=== PATIENT | female | born 1990 | race Caucasian/White ===

== ENCOUNTER 2017-10-29 20:55 | Inpatient (IN) | payer OTHER ==
[2017-10-29] MEDS: ELECTROLYTE-148 SOLN 1,000 ML IV SCH ×2 (21:15→23:45)
[2017-10-29 21:52] VITALS: BMI 29.7
[2017-10-29] MEDS ORDERED: TUBERCULIN PPD 5 TU/0.1ML SYRINGE (IN PATIENT USE ONLY) ID ONE (22:00)
[2017-10-29] MEDS ORDERED: BUTORPHANOL TARTRATE 1 MG/ML VIAL IVPB ONE (22:17)
[2017-10-29] MEDS ORDERED: PROMETHAZINE HCL 25 MG/1 ML VIAL IVPUSH ONE (22:17)
[2017-10-29 22:26] LABS: BASO # 0.1 # (0.1-1); BASO % 0.6 % (0-2.0); EOS % 0.2 % (0-4.5); LYMPH # 1.4 (8-40); MCHC 33.7 g/dl (32.0-36.0); MEAN CELL VOLUME 92.1 fl (80-96); MEAN PLT VOLUME 10.2 fl (7.5-11.1); MONO # 0.3 # (3.8-10.2); NEUT # 10.2 # (42.8-82.8); NEUT % 84.7 % (42.8-82.8); PLATELET COUNT 191 K/MM3 (134-434); RDW 14.7 % (11.6-15.6); WHITE BLOOD COUNT 12.1 K/mm3 (4.0-10.0)
--- NOTE | 2017-10-29 22:38 | HP ---
Past Medical History - Primary Care Physician PCP:: Dayana Smallwood - Admission Chief Complaint: Spontaneous rupture of membranes. Labor History of Present Illness: 89 yo spont ab x 1 in 1st trimester admitted for spontaneous rupture of membranes who desired natural labor History Source: Patient Limitations to Obtaining History: No Limitations - Past Medical History Pulmonary: Yes: Asthma ...: 3 ...Para: 0 ...Term: 0 ...: 0 ...Spon : 2 ...Induced : 0 ...Multiple Gestation: 0 ...LMP: 01/26/17 ... Weeks Gestation by Dates: 39.3 ...EDC by Dates: 11/02/17 - Past Surgical History Past Surgical History: Yes: Tonsillectomy Hx Myomectomy: No Hx Transabdominal Cerclage: No - Smoking History Smoking history: Never smoked Have you smoked in the past 12 months: No Aproximately how many cigarettes per day: 0 - Alcohol/Substance Use Hx Alcohol Use: No - Social History History of Recent Travel: No Home Medications - Allergies Allergies/Adverse Reactions: Allergies Allergy/AdvReac Type Severity Reaction Status Date / Time cat dander Allergy Verified 10/29/17 21:33 dog dander Allergy Verified 10/29/17 21:32 pollen extracts Allergy Verified 10/29/17 21:33 - Home Medications Home Medications: Ambulatory Orders Vit 108/Iron/Folic AC [ One Tablet] 1 each PO DAILY 10/29/17 Review of Systems - Review of Systems Constitutional: reports: No Symptoms Eyes: reports: No Symptoms HENT: reports: No Symptoms Neck: reports: No Symptoms Cardiovascular: reports: No Symptoms Respiratory: reports: No Symptoms Gastrointestinal: reports: Abdominal Pain Genitourinary: reports: No Symptoms Breasts: reports: No Symptoms Reported Musculoskeletal: reports: No Symptoms Integumentary: reports: No Symptoms Neurological: reports: No Symptoms Endocrine: reports: No Symptoms Hematology/Lymphatic: reports: No Symptoms Psychiatric: reports: No Symptoms Physical Exam - Maternity Vital Signs: Vital Signs Temperature 97.7 F 10/29/17 21:42 Pulse Rate 86 10/29/17 21:42 Respiratory Rate 21 10/29/17 21:42 Blood Pressure 121/62 10/29/17 21:42 O2 Sat by Pulse Oximetry (%) Constitutional: Yes: Well Nourished, No Distress Neck: Yes: WNL Breast(s): Yes: WNL - Abdominal Exam/OB Fundal Height: 39 Number of Fetuses: Single Contractions: Yes Regularity: Regular Intensity: Mod/Strong Monitor Mode: External Heart Rate Location: [facility] Category: I Decelerations: None - Vaginal Exam/OB Dilatation (cm): 2 Amniotic Membrane Status: Ruptured Station: -1 Hemorrhage Risk Assessment - Risk Factors Medium Risk Factors: Yes: None High Risk Factors: Yes: None Risk Score: 1 Risk Level: Medium Risk Problem List - Problems (1) Spontaneous rupture of membranes Code(s): [id number] - (2) Spontaneous onset of labor after 37 but before 39 completed weeks gestation with delivery by planned section Code(s): O75.82 - ONSET LABOR 37-39 WEEKS, W DEL BY (PLANNED) SECTION Assessment/Plan iup at 39.3 weeks srom labbor Cat 1 Plan stadol may desire epidural
[2017-10-29 22:59] LABS: ANION GAP 15 (8-16); CALCIUM 8.9 mg/dL (8.5-10.1); CO2 18 mmol/L (21-32); CREATININE 0.6 mg/dL (0.55-1.02); GLUCOSE,RANDOM 163 mg/dL (74-106)
[2017-10-29 23:15] LABS: ACTIVATED PTT 28.2 SECONDS (26.9-34.4)
[2017-10-29 23:39] LABS: INR 1.01 (0.82-1.09); PROTHROMBIN TIME (PATIENT) 11.4 SEC (9.98-11.88)
[2017-10-30] MEDS ORDERED: FENTANYL/BUPIVACAINE/NS/PF - PCEA - 50 ML DISP.SYRIN EP ONE (00:56)
[2017-10-30] MEDS ORDERED: FENTANYL/BUPIVACAINE/NS/PF - PCEA - 50 ML DISP.SYRIN EP SCH (01:50)
--- NOTE | 2017-10-30 02:24 | PN ---
Ante-Partal Exam - Subjective Subjective: pt s/p epidural pt with c/o pressure Vital Signs: Vital Signs Temperature 98.5 F 10/30/17 00:00 Pulse Rate 86 10/30/17 00:00 Respiratory Rate 20 10/30/17 00:00 Blood Pressure 132/84 10/30/17 00:00 O2 Sat by Pulse Oximetry (%) Bleeding: No Headache: No Visual changes: No Right upper quadrant pain: No - Contractions Contractions: Yes Regularity: Regular Intensity: Moderate Monitor Mode: External - Exam during Labor Variability: Moderate Category: I Monitor Decelerations: Early Exam: Vaginal Dilatation (cm): 7 Effacement (%): 80 Amniotic Membrane Status: Ruptured Nitrazine Test: Positive Amniotic Fluid: Clear Presentation: Vertex Station: -1 - Assessment/Plan Assessment/Plan: iup at 39.5 week active labor Cat 1 Plan Continue labor progress
--- NOTE | 2017-10-30 02:32 | PN ---
Ante-Partal Exam - Subjective Subjective: Pt with pressure Vital Signs: Vital Signs Temperature 98.5 F 10/30/17 00:00 Pulse Rate 86 10/30/17 00:00 Respiratory Rate 20 10/30/17 00:00 Blood Pressure 132/84 10/30/17 00:00 O2 Sat by Pulse Oximetry (%) Bleeding: No Headache: No Visual changes: No Right upper quadrant pain: No - Contractions Contractions: Yes Regularity: Regular Intensity: Moderate Monitor Mode: External - Exam during Labor Variability: Moderate Category: I Exam: Vaginal Amniotic Fluid: Clear Presentation: Vertex Station: +1 - Assessment/Plan Assessment/Plan: IUp at 39.5 week Arom Cat 1 SP epidural Plan Continue labor progress Anticipate vaginal delivery
[2017-10-30] MEDS ORDERED: OXYTOCIN 20 UNITS in 0.9% NS 20 UNIT/1,000 ML INFUS.BAG IV ONE (05:18)
[2017-10-30] MEDS ORDERED: LIDOCAINE HCL 1% PRESERVATIVE FREE - 30ML VIAL ONE (05:18)
--- NOTE | 2017-10-30 06:17 | PN ---
Delivery - Delivery Vaginal Delivery: Shoulder/Difficult (Narciso manuver), Spontaneous Type of Anesthesia: Epidural Episiotomy/Laceration: 1st degree EBL (cc): 300 Delivery, Single - Stages of Labor Placenta: Yes: Spontaneous - Condition of Infant Gender: Male Position: OA - Feeding Plan Initial Plan: Elected not to breastfeed exclusively throughout hospitalization
[2017-10-30] MEDS ORDERED: METHYLERGONOVINE MALEATE 0.2 MG/1 ML AMP IM PRN (06:22)
[2017-10-30] MEDS ORDERED: WITCH HAZEL 50% (TUCKS) 40 PAD/JAR PAD TP PRN (06:22)
[2017-10-30] MEDS ORDERED: BENZOCAINE 20% 57 GM BOTTLE TP PRN (06:22)
[2017-10-30] MEDS ORDERED: BENZOCAINE 28 GM HEMORRHOIDAL OINTMENT PR PRN (06:22)
[2017-10-30] MEDS ORDERED: BISACODYL 10 MG SUPP.RECT RC PRN (06:22)
[2017-10-30 06:37] LABS: ARTERIAL BLOOD GAS BASE EXCESS -6.7 meq/l (-2-2); ARTERIAL BLOOD GAS HCO3 20.4 meq/L (22-26)
[2017-10-30 06:43] LABS: VENOUS BLOOD GAS HCO3 20.2 meq/L (19-25); VENOUS PH 7.35 (7.32-7.42)
[2017-10-30 06:46] LABS: ARTERIAL BLOOD GAS PO2 24.7 mmHg (80-100)
[2017-10-30 06:47] LABS: ARTERIAL BLD GAS O2 SATURATION 38.4 % (90-98.9); ARTERIAL BLOOD GAS pH 7.24 (7.35-7.45)
[2017-10-30] MEDS: ACETAMINOPHEN 325 MG TABLET (FP) PO PRN ×2 (08:37→17:39)
[2017-10-30] MEDS: IBUPROFEN 600 MG TABLET (FP) PO PRN ×2 (08:38→17:39)
[2017-10-31] MEDS: IBUPROFEN 600 MG TABLET (FP) PO PRN ×2 (00:10→12:52)
[2017-10-31] MEDS: ACETAMINOPHEN 325 MG TABLET (FP) PO PRN ×2 (00:10→12:53)
[2017-10-31 08:14] LABS: BASO # 0.1 # (0.1-1); BASO % 0.8 % (0-2.0); EOS # 0.2 # (0-4.5); EOS % 1.5 % (0-4.5); LYMPH # 2.9 (8-40); MCH 30.6 pg (25.7-33.7); MCHC 32.6 g/dl (32.0-36.0); MEAN CELL VOLUME 93.8 fl (80-96); MEAN PLT VOLUME 9.4 fl (7.5-11.1); MONO # 0.6 # (3.8-10.2); NEUT # 8.2 # (42.8-82.8); NEUT % 68.5 % (42.8-82.8); PLATELET COUNT 161 K/MM3 (134-434); RDW 15.3 % (11.6-15.6); WHITE BLOOD COUNT 11.9 K/mm3 (4.0-10.0)
--- NOTE | 2017-10-31 08:20 | PN ---
Post Progress Note - Subjective Subjective: 27 yo Para 1 status post vaginal delivery, seen and evaluated. Doing well, no complaints. Post Day: 1 Type of Delivery: Vital Signs: Vital Signs Temperature 97.7 F 10/31/17 04:00 Pulse Rate 88 10/31/17 04:00 Respiratory Rate 18 10/31/17 04:00 Blood Pressure 120/60 10/31/17 04:00 O2 Sat by Pulse Oximetry (%) 100 10/30/17 06:45 Breast Exam: Yes: Soft Uterus: Yes: Fundus Firm Abdomen/GI: Yes: Abdomen soft, Tolerating PO Lochia: Yes: Rubra Lochia, amount: Moderate Extremities: Yes: Calves non-tender Activity: Ambulating - Labs Labs: CBC WBC 12.1 K/mm3 (4.0-10.0) H D 10/29/17 22:00 RBC 3.94 M/mm3 (3.60-5.2) 10/29/17 22:00 Hgb 12.2 GM/dL (10.7-15.3) 10/29/17 22:00 Hct 36.3 % (32.4-45.2) 10/29/17 22:00 MCV 92.1 fl (80-96) 10/29/17 22:00 MCH 31.0 pg (25.7-33.7) 10/29/17 22:00 MCHC 33.7 g/dl (32.0-36.0) 10/29/17 22:00 RDW 14.7 % (11.6-15.6) D 10/29/17 22:00 Plt Count 191 K/MM3 (134-434) 10/29/17 22:00 MPV 10.2 fl (7.5-11.1) D 10/29/17 22:00 Absolute Neuts (auto) 10.2 # (42.8-82.8) L 10/29/17 22:00 Absolute Lymphs (auto) 1.4 (8-40) L 10/29/17 22:00 Absolute Monos (auto) 0.3 # (3.8-10.2) L 10/29/17 22:00 Absolute Eos (auto) 0.0 # (0-4.5) 10/29/17 22:00 Absolute Basos (auto) 0.1 # (0.1-1) 10/29/17 22:00 Neutrophils % 84.7 % (42.8-82.8) H D 10/29/17 22:00 Lymphocytes % 11.7 % (8-40) D 10/29/17 22:00 Monocytes % 2.8 % (3.8-10.2) L 10/29/17 22:00 Eosinophils % 0.2 % (0-4.5) D 10/29/17 22:00 Basophils % 0.6 % (0-2.0) 10/29/17 22:00 Problem List - Problems (1) Status post normal vaginal delivery Code(s): [id number] - Assessment/Plan Status post vaginal delivery Stable Continue care
[2017-11-01] MEDS: ACETAMINOPHEN 325 MG TABLET (FP) PO PRN (00:43)
[2017-11-01] MEDS: IBUPROFEN 600 MG TABLET (FP) PO PRN (00:44)
[2017-11-01 08:44] VITALS: BP 135/83; PULSE 76; TEMP 97.8
== END 2017-11-01 11:55 | disposition home or self-care (01) | DRG 560 ==
LOC: JDEL 20:55 → JLDR 21:25 → J3W 10-30 08:20
PROVIDERS: ADMIT Obstetrics & Gynecology; ATTEND Obstetrics & Gynecology
PROC: 0HQ9XZZ Repair Perineum Skin, External Approach (ICD-10-PCS; principal; 2017-10-30)
PROC: 10E0XZZ Delivery of Products of Conception, External Approach (ICD-10-PCS; 2017-10-30)
DX: O70.0 First degree perineal laceration during delivery (principal); Z3A.39 39 weeks gestation of pregnancy
CPT/HCPCS: 36415; 36600; 59409; 80048; 82803; 85025; 85610; 85730; 86593; 86850; 86900; 86901

== ENCOUNTER 2020-05-28 08:40 | Inpatient (IN) | payer OTHER ==
[2020-05-28 09:59] VITALS: BMI 33.7
[2020-05-28] MEDS ORDERED: PROMETHAZINE HCL 25 MG/1 ML VIAL IVPB ONE (10:29)
[2020-05-28] MEDS ORDERED: BUTORPHANOL TARTRATE 1 MG/ML VIAL IVPB PRN (10:29)
--- NOTE | 2020-05-28 10:29 | HP ---
Past Medical History - Primary Care Physician PCP:: Dayana Smallwood - Admission Chief Complaint: Spontaneous rupture of membranes. Labor History of Present Illness: 30 y ega 39 week with srom in active labor History Source: Patient Limitations to Obtaining History: No Limitations - Past Medical History Pulmonary: Yes: Asthma ...: 5 ...Para: 1 ...Term: 1 ...Spon : 2 ...Induced : 1 ...Living Children: 1 ...EDC by Reagan: 06/01/20 - Past Surgical History Past Surgical History: Yes: Tonsillectomy Hx Myomectomy: No Hx Transabdominal Cerclage: No - Smoking History Smoking history: Never smoked Have you smoked in the past 12 months: No Aproximately how many cigarettes per day: 0 - Alcohol/Substance Use Hx Alcohol Use: No History of Substance Use: reports: None - Social History Usual Living Arrangement: Yes: With Spouse Do you think of yourself as: Straight/Heterosexual History of Recent Travel: No Home Medications - Allergies Allergies/Adverse Reactions: Allergies Allergy/AdvReac Type Severity Reaction Status Date / Time cat dander Allergy Verified 05/28/20 10:21 dog dander Allergy Verified 05/28/20 10:21 pollen extracts Allergy Verified 05/28/20 10:21 - Home Medications Home Medications: Ambulatory Orders Mv-Mn/Iron/FA/Herbal/Digestive [ One Tablet] 1 each PO DAILY 10/29/17 Ibuprofen [Motrin -] 600 mg PO QID PRN #28 tablet 10/30/17 Ibuprofen [Motrin -] 600 mg PO QID #28 tablet 05/28/20 Review of Systems - Review of Systems Constitutional: reports: No Symptoms Eyes: reports: No Symptoms HENT: reports: No Symptoms Neck: reports: No Symptoms Cardiovascular: reports: No Symptoms Respiratory: reports: No Symptoms Gastrointestinal: reports: No Symptoms Genitourinary: reports: No Symptoms Breasts: reports: No Symptoms Reported Musculoskeletal: reports: No Symptoms Integumentary: reports: No Symptoms Neurological: reports: No Symptoms Endocrine: reports: No Symptoms Hematology/Lymphatic: reports: No Symptoms Psychiatric: reports: No Symptoms Physical Exam - Maternity Vital Signs: Vital Signs Temperature 98.3 F 05/28/20 09:48 Pulse Rate 82 05/28/20 09:48 Respiratory Rate 18 05/28/20 09:48 Blood Pressure 123/72 05/28/20 09:48 O2 Sat by Pulse Oximetry (%) Constitutional: Yes: Well Nourished, No Distress Cardiovascular: Yes: WNL Breast(s): Yes: WNL - Abdominal Exam/OB Number of Fetuses: Single Presentation: Vertex Contractions: Yes Monitor Mode: External Category: I - Vaginal Exam/OB Dilatation (cm): 1 Amniotic Membrane Status: Ruptured Presentation: Vertex/Position - Physical Exam Musculoskeletal: Yes: WNL Extremities: Yes: WNL Psychiatric: Yes: WNL, Alert, Oriented Hemorrhage Risk Assessment - Risk Factors Risk Score: 0 Risk Level: Low Risk Problem List - Problems (1) Spontaneous rupture of membranes Problems reviewed: Yes Code(s): [id number] - Assessment/Plan SROM 39 week Cat 1 P1 Plan Admit to LD
[2020-05-28] MEDS ORDERED: ELECTROLYTE-148 SOLN 1,000 ML IV SCH (10:30)
[2020-05-28] MEDS ORDERED: AMPICILLIN - 2 GM in SODIUM CHLORIDE 100 ML IVPB ONE (10:30)
[2020-05-28] MEDS ORDERED: AMPICILLIN SODIUM 2 GM VIAL ONE (11:01)
[2020-05-28] MEDS ORDERED: FENTANYL/BUPIVACAINE/NS/PF - PCEA - 50 ML DISP.SYRIN EP ONE (11:09)
[2020-05-28] MEDS ORDERED: OXYTOCIN 20 UNITS in 0.9% NS 20 UNIT/1,000 ML INFUS.BAG IV ONE (11:10)
[2020-05-28] MEDS ORDERED: PCA PUMP NR ONE (11:10)
[2020-05-28] MEDS ORDERED: LIDOCAINE HCL 1% PRESERVATIVE FREE - 30ML VIAL ONE (11:11)
[2020-05-28 11:30] LABS: BASO % 0.3 % (0-2.0); EOS % 0.1 % (0-4.5); HEMATOCRIT 39.8 % (32.4-45.2); HEMOGLOBIN 13.4 GM/dL (10.7-15.3); LYMPH % 12.2 % (8-40); MCHC 33.7 g/dl (32.0-36.0); MEAN CELL VOLUME 94.9 fl (80-96); MEAN PLT VOLUME 9.5 fl (7.5-11.1); MONO % 3.7 % (3.8-10.2); NEUT % 83.7 % (42.8-82.8); PLATELET COUNT 235 K/MM3 (134-434); RDW 13.5 % (11.6-15.6); WHITE BLOOD COUNT 13.2 K/mm3 (4.0-10.0)
[2020-05-28 11:39] LABS: INR 0.94 (0.83-1.09); PROTHROMBIN TIME (PATIENT) 11.1 SEC (9.7-13.0)
[2020-05-28 11:42] LABS: ACTIVATED PTT 25.2 SECONDS (25.2-36.5)
[2020-05-28 11:56] LABS: BLOOD UREA NITROGEN 6.1 mg/dL (7-18); CALCIUM 8.5 mg/dL (8.5-10.1); CREATININE 0.6 mg/dL (0.55-1.3); POTASSIUM 3.8 mmol/L (3.5-5.1)
[2020-05-28] MEDS ORDERED: NALOXONE HCL 0.4 MG/ML VIAL IVPUSH PRN (11:58)
[2020-05-28] MEDS ORDERED: FENTANYL/BUPIVACAINE/NS/PF - PCEA - 50 ML DISP.SYRIN EP SCH (12:00)
[2020-05-28] MEDS ORDERED: LIDO 2%/EPI 1:200000 PRESRVFRE (20 ML SDVIAL) ONE (12:48)
--- NOTE | 2020-05-28 13:38 | PN ---
Ante-Partal Exam - Subjective Subjective: Pt doing well SP epidural top off Vital Signs: Vital Signs Temperature 97.8 F 05/28/20 11:00 Pulse Rate 78 05/28/20 13:30 Respiratory Rate 18 05/28/20 13:30 Blood Pressure 118/61 05/28/20 13:30 O2 Sat by Pulse Oximetry (%) 99 05/28/20 13:30 Bleeding: No Headache: No Visual changes: No Right upper quadrant pain: No - Contractions Contractions: Yes Regularity: Regular Intensity: Moderate Monitor Mode: External - Exam during Labor Variability: Moderate Heart Rate Location: [facility] Category: I Exam: Vaginal Dilatation (cm): 9 cm Effacement (%): 100 Amniotic Membrane Status: Ruptured Amniotic Fluid: Clear Presentation: Vertex Station: 0 - Intrapartum Hemorrhage Risk Risk Score: 0 Risk Level: Low Risk - Assessment/Plan Assessment/Plan: Active labor Epidural in place and was topped off Cat 1 Plan Continue present management
--- NOTE | 2020-05-28 14:42 | PN ---
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
[2020-05-28] MEDS ORDERED: METHYLERGONOVINE MALEATE 0.2 MG/1 ML AMP IM PRN (14:43)
[2020-05-28] MEDS ORDERED: BENZOCAINE 28 GM HEMORRHOIDAL OINTMENT PR PRN (14:43)
[2020-05-28] MEDS ORDERED: BISACODYL 10 MG SUPP.RECT PR PRN (14:43)
[2020-05-28] MEDS ORDERED: BENZOCAINE 20% 57 GM BOTTLE TP PRN (14:43)
[2020-05-28] MEDS ORDERED: WITCH HAZEL 50% (TUCKS) 40 PAD/JAR PAD TP PRN (14:43)
[2020-05-28 15:26] LABS: CORD BASE EXCESS -3.8 mmol/L (0-2); CORD HCO3 22.3 mmHg (20-29); CORD PCO2 44.1 mmHg (30-78); CORD pH 7.321 (7.14-7.44)
[2020-05-28 15:28] LABS: CORD BASE EXCESS -3.3 mmol/L (0-2); CORD HCO3 22.8 mmHg (20-29); CORD PCO2 44.7 mmHg (30-78); CORD pH 7.325 (7.14-7.44)
[2020-05-28] MEDS: ACETAMINOPHEN 325 MG TABLET (FP) PO PRN ×2 (16:36→20:44)
[2020-05-28] MEDS: IBUPROFEN 600 MG TABLET (FP) PO PRN ×2 (16:36→20:44)
[2020-05-29] MEDS: IBUPROFEN 600 MG TABLET (FP) PO PRN ×2 (04:56→12:19)
[2020-05-29] MEDS: ACETAMINOPHEN 325 MG TABLET (FP) PO PRN ×2 (04:57→12:20)
[2020-05-29 08:05] LABS: BASO % 0.4 % (0-2.0); EOS % 0.5 % (0-4.5); HEMATOCRIT 36.8 % (32.4-45.2); LYMPH % 15.2 % (8-40); MCH 31.5 pg (25.7-33.7); MCHC 32.6 g/dl (32.0-36.0); MEAN CELL VOLUME 96.6 fl (80-96); MEAN PLT VOLUME 9.3 fl (7.5-11.1); MONO % 4.6 % (3.8-10.2); NEUT % 79.3 % (42.8-82.8); PLATELET COUNT 191 K/MM3 (134-434); RBC 3.81 M/mm3 (3.60-5.2); RDW 13.5 % (11.6-15.6); WHITE BLOOD COUNT 12.8 K/mm3 (4.0-10.0)
[2020-05-29 14:30] VITALS: BP 120/70; PULSE 75; TEMP 98
== END 2020-05-29 19:20 | disposition home or self-care (01) | DRG 560 ==
LOC: JLDR 08:40 → J3W 16:10
PROVIDERS: ADMIT Obstetrics & Gynecology; ATTEND Obstetrics & Gynecology
DX: O42.02 Full-term premature rupture of membranes, onset of labor within 24 hours of rupture (principal); O70.0 First degree perineal laceration during delivery; Z3A.39 39 weeks gestation of pregnancy; Z37.0 Single live birth; Z87.09 Personal history of other diseases of the respiratory system
CPT/HCPCS: 36415; 36600; 59409; 80048; 82803; 85025; 85610; 85730; 86780; 86850; 86900; 86901; 87389

== ENCOUNTER 2025-07-08 09:30 | Inpatient (IN) | payer BC, OTHER ==
[2025-07-08] MEDS: ELECTROLYTE-148 SOLN 1,000 ML IV SCH (10:30)
[2025-07-08] MEDS ORDERED: AMPICILLIN - 2 GM in DEXTROSE 5%-WATER 100 ML IVPB ONE (10:38)
[2025-07-08] MEDS ORDERED: AMPICILLIN SODIUM 2 GM VIAL ONE (10:52)
[2025-07-08 11:26] LABS: ABSOLUTE IMMATURE GRANULOCYTES 0.04 x10^3/uL (0.0-0.031); BASOPHILS # 0.03 x10^3/uL (0.01-0.08); EOSINOPHIL % 1.1 % (0.7-5.8); EOSINOPHILS # 0.10 x10^3/uL (0.04-0.36); MCHC 32.7 g/dl (32.2-35.5); MEAN CELL VOLUME 95.2 fl (79.4-94.8); MEAN PLT VOLUME 11.0 fl (9.4-12.3); MONOCYTE # 0.40 x10^3/uL (0.24-0.86); MONOCYTE % 4.2 % (4.7-12.5); RDW 13.2 % (12.1-16.8)
[2025-07-08 11:33] LABS: INR 1.02 (0.83-1.09); PROTHROMBIN TIME (PATIENT) 11.2 SEC (9.7-13.0)
[2025-07-08 11:35] LABS: ACTIVATED PTT 26.5 SECONDS (25.2-36.5)
[2025-07-08 11:37] VITALS: BMI 29.5
[2025-07-08 11:52] LABS: GLUCOSE,RANDOM 76.0 mg/dL (74-106)
[2025-07-08 11:53] LABS: CO2 21.0 mmol/L (21-32)
[2025-07-08 11:57] LABS: CREATININE 0.56 mg/dL (0.55-1.3)
[2025-07-08] MEDS ORDERED: CLINDAMYCIN IN 0.9 % SOD CHLOR 600 MG/50 ML BAG IVPB ONE (12:00)
[2025-07-08] MEDS: CLINDAMYCIN 900 MG PREMIX IVPB 900 MG/50 ML BAG IVPB SCH (12:38)
[2025-07-08] MEDS ORDERED: NALOXONE HCL 0.4 MG/ML VIAL IVPUSH PRN (12:49)
[2025-07-08] MEDS ORDERED: BUPIVACAINE HCL/PF 0.25% (2.5MG/ML) 10 ML VIAL ONE (13:16)
[2025-07-08] MEDS ORDERED: FENTANYL/BUPIVACAINE/NS/PF - PCEA - 50 ML DISP.SYRIN EP ONE (13:21)
[2025-07-08] MEDS: FENTANYL/BUPIVACAINE/NS/PF - PCEA - 50 ML DISP.SYRIN EP SCH (13:32)
[2025-07-08] MEDS ORDERED: LIDOCAINE HCL 1% PRESERVATIVE FREE - 30ML VIAL ONE (13:52)
[2025-07-08] MEDS ORDERED: OXYTOCIN 20 UNITS in 0.9% NS 20 UNIT/1,000 ML INFUS.BAG IV ONE (13:52)
[2025-07-08] MEDS: OXYTOCIN 20 UNITS in 0.9% NS 20 UNIT/1,000 ML INFUS.BAG IV SCH (14:31)
[2025-07-08] MEDS ORDERED: WITCH HAZEL 50% (TUCKS) 40 PAD/JAR PAD TP PRN (14:41)
[2025-07-08] MEDS ORDERED: METHYLERGONOVINE MALEATE 0.2 MG/1 ML AMP IM PRN (14:41)
[2025-07-08] MEDS ORDERED: BENZOCAINE 28 GM HEMORRHOIDAL OINTMENT TP PRN (14:41)
[2025-07-08] MEDS ORDERED: BENZOCAINE 20% 57 GM BOTTLE TP PRN (14:41)
[2025-07-08] MEDS ORDERED: BISACODYL 10 MG SUPP.RECT RC PRN (14:41)
[2025-07-08] MEDS ORDERED: IBUPROFEN 600 MG TABLET (FP) PO PRN (14:41)
[2025-07-08] MEDS ORDERED: AMPICILLIN - 1 GM in SODIUM CHLORIDE 100 ML IVPB SCH (14:45)
[2025-07-08 15:03] LABS: CORD BASE EXCESS -3.200 mmol/L (0-2); CORD BASE EXCESS -3.6 mmol/L (0-2); CORD HCO3 20.0 mmHg (20-29); CORD HCO3 23.4 mmHg (20-29); CORD PCO2 33.1 mmHg (30-78); CORD PCO2 47.3 mmHg (30-78); CORD pH 7.312 (7.14-7.44); CORD pH 7.399 (7.14-7.44)
[2025-07-08] MEDS ORDERED: ACETAMINOPHEN 325 MG TABLET (FP) ONE (15:05)
[2025-07-08] MEDS: CLINDAMYCIN 600MG PREMIX IVPB 600 MG/50 ML BAG IVPB ONE (16:09)
[2025-07-08] MEDS: FERROUS SO4 325 MG TABLET (FP) PO SCH (17:25)
[2025-07-08] MEDS: ACETAMINOPHEN 325 MG TABLET (FP) PO PRN (17:25)
[2025-07-09 07:45] LABS: ABSOLUTE IMMATURE GRANULOCYTES 0.04 x10^3/uL (0.0-0.031); BASOPHILS # 0.05 x10^3/uL (0.01-0.08); EOSINOPHIL % 1.0 % (0.7-5.8); EOSINOPHILS # 0.10 x10^3/uL (0.04-0.36); MCHC 32.4 g/dl (32.2-35.5); MEAN CELL VOLUME 95.1 fl (79.4-94.8); MEAN PLT VOLUME 11.0 fl (9.4-12.3); MONOCYTE # 0.45 x10^3/uL (0.24-0.86); MONOCYTE % 4.3 % (4.7-12.5); RDW 13.2 % (12.1-16.8)
[2025-07-09] MEDS: PRENATAL VITAMINS W/ FOLIC ACID TABLET (FP) PO SCH (10:12)
[2025-07-09 21:44] VITALS: RESP 18; TEMP 98.2
[2025-07-09] MEDS ORDERED: SENNOSIDES/DOCUSATE COMBO (SENNA PLUS) TABLET (UD) PO PRN (22:00)
[2025-07-10 10:16] VITALS: BP 116/74; PULSE 75
== END 2025-07-10 12:50 | disposition home or self-care (01) | DRG 807 ==
LOC: JLDR 09:30 → J3W 17:04
PROVIDERS: ADMIT Obstetrics & Gynecology; ATTEND Obstetrics & Gynecology
PROC: 10E0XZZ Delivery of Products of Conception, External Approach (ICD-10-PCS; principal; 2025-07-08)
DX: O99.824 Streptococcus B carrier state complicating childbirth (principal); Z37.0 Single live birth; Z3A.40 40 weeks gestation of pregnancy
CPT/HCPCS: 36415; 36600; 59409; 80048; 82803; 85025; 85610; 85730; 86780; 86850; 86900; 86901